=== PATIENT | female | born 1955 | race African-American/Black ===

== ENCOUNTER 2016-10-20 10:34 | Emergency (ER) | payer MEDICARE, MEDICAID ==
[~2016-10-20] VITALS: Ht 172.7 cm; Wt 80.0 kg
[~2016-10-20 10:34] MED LIST: ACET500T3 PO; BACT800T5 PO; ERYTOIN10 RIGHT EYE; IBUP-232 PO; MUPI2%T TOPICAL
[2016-10-20 10:35] VITALS: BP 126/85; PULSE 64; RESP 24; TEMP 97.4; O2SAT 97
--- NOTE | 2016-10-20 10:46 | PD ---
HPI Chief Complaint: Back/ Neck Pain or Injury Time Seen by Provider: 10:42 Travel History International Travel<30 days: No Contact w/Intl Traveler<30days: No Traveled to known affect area: No History of Present Illness HPI 60-year-old Afro-Bur[place] female presents the emergency department with ongoing and worsening central thoracic and upper lumbar back pain and muscle spasm. Patient states she hasn't appointment with her pain clinic on 25 October. She has been doing well up until last couple of weeks. She denies any other specific acute injury. She states the pain is 10 out of 10 today. She's been trying heat and ice and stretching without improvement. Patient has history of recurrent back pain in the past. Patient has not been the pain management and many months. She has history of MRSA. She has no known drug allergies. PFSH Past Medical History Hx Anticoagulant Therapy: Yes (ASA) Arthritis: Yes Asthma: No Autoimmune Disease: No Blood Disorders: No Anxiety: No Depression: No Heart Rhythm Problems: No Cancer: No Cardiovascular Problems: No High Cholesterol: No Chest Pain: No Congestive Heart Failure: No COPD: No Diabetes: No Diminished Hearing: No Endocrine: No Genitourinary: No Hepatitis: No Hiatal Hernia: No Immune Disorder: No Musculoskeletal: Yes (RIGHT KNEE , DDD LOWER BACK) Neurologic: No Psychiatric: No Reproductive: No Respiratory: No Integumentary: Yes (HX OF MRSA) Sickle Cell Disease: No Sleep Apnea: No Thyroid Disease: No Menopausal: Yes Past Surgical History Abdominal Surgery: Yes (APPENDECTOMY) Appendectomy: Yes Cardiac Surgery: No Ear Surgery: No Endocrine Surgery: No Eye Surgery: No Genitourinary Surgery: No Gynecologic Surgery: No Joint Replacement: Yes (BILAT TKR) Thoracic Surgery: No Other Surgery: Yes (appendectomy, knee replament) Social History Alcohol Use: Yes (OCCASSIONAL) Tobacco Use: Yes (4 CIGARETTS PER DAY) Substance Use: No Allergies-Medications (Allergen,Severity, Reaction): Coded Allergies: *MDRO Multi-Drug Resistant Organism (Verified Adverse Reaction, Unknown, ) MRSA Arm and leg wounds 2006 &2008 Reported Meds & Prescriptions Reported Meds & Active Scripts Active Review of Systems Except as stated in HPI: all other systems reviewed are Neg General / Constitutional: No: Fever Eyes: No: Visual changes HENT: No: Headaches Cardiovascular: No: Chest Pain or Discomfort Respiratory: No: Shortness of Breath Gastrointestinal: No: Abdominal Pain Genitourinary: No: Dysuria Musculoskeletal: Positive: Myalgias, Arthralgias, Limited ROM, Pain Skin: No Rash Neurologic: No: Weakness Psychiatric: No: Depression Endocrine: No: Polydipsia Hematologic/Lymphatic: No: Easy Bruising Physical Exam Narrative GENERAL: Patient appears in moderate distress. SKIN: Warm and dry. Normal color. Normal turgor. No rash. HEAD: Atraumatic. Normocephalic. EYES: Pupils equal and round. No scleral icterus. No injection or drainage. ENT: No nasal bleeding or discharge. Mucous membranes pink and moist. Pharynx is clear. Airway is patent. NECK: Trachea midline. No bony step-off or tenderness. Neck is supple without tenderness CARDIOVASCULAR: Regular rate and rhythm. RESPIRATORY: No accessory muscle use. Clear to auscultation. Breath sounds equal bilaterally. GASTROINTESTINAL: Abdomen soft, non-tender, nondistended. Hepatic and splenic margins not palpable. MUSCULOSKELETAL: Extremities without clubbing, cyanosis, or edema. No obvious deformities. Patient has tenderness along the lower thoracic upper lumbar spine with palpable muscle spasm with tenderness reproduced the patient's patient has no lower extremity sciatic signs. NEUROLOGICAL: Awake and alert. No obvious cranial nerve deficits. Motor grossly within normal limits. Five out of 5 muscle strength in the arms and legs. Normal speech. PSYCHIATRIC: Appropriate mood and affect; insight and judgment normal. Data Data Last Documented VS Vital Signs Date Time Temp Pulse Resp B/P Pulse Ox O2 Delivery O2 Flow Rate FiO2 10/20/16 10:35 97.4 64 24 126/85 97 Room Air Orders Acetamin-Hydrocod 325-5 Mg ([place] 5-325 (10/20/16 11:00) Prednisone (Deltasone) (10/20/16 11:00) [facility] Medical Decision Making Medical Screen Exam Complete: Yes Emergency Medical Condition: Yes Differential Diagnosis Recurrent back pain. Muscle spasm. Degenerative disc disease. Narrative Course Radiographic imaging is not felt warranted based on the patient's history and physical. Patient is given 40 mg prednisone by mouth as well as 5/325 mg Lortab by mouth Patient will be continued on prednisone 20 mg twice a day 5 days. Patient is given Flexeril 10 mg 3 times a day #15. Patient was given Lortab 5/325 one tablet every 6 hours when necessary #20. Patient is to use heat, ice, stretching, and follow-up with pain management as scheduled. Patient can return the emergency Department with worsening symptoms if necessary. Referrals: Pain Management Patient Instructions: Acute Low Back Pain (ED), General Instructions, Muscle Spasm (ED), Narcotic given in the ED, Upper Back Exercises (GEN) Additional Instructions: Radiographic imaging is not felt warranted based on the patient's history and physical. Patient is given 40 mg prednisone by mouth as well as 5/325 mg Lortab by mouth Patient will be continued on prednisone 20 mg twice a day 5 days. Patient is given Flexeril 10 mg 3 times a day #15. Patient was given Lortab 5/325 one tablet every 6 hours when necessary #20. Patient is to use heat, ice, stretching, and follow-up with pain management as scheduled. Patient can return the emergency Department with worsening symptoms if necessary. Scripts Prednisone 20 Mg Tab20 Mg PO BID #10 TAB Prov:Edson Terrell MD 10/20/16 Hydrocodone-Acetaminophen (Lortab)5-325 Mg Tab1-2 Tab PO Q6H PRN (PAIN) #20 TAB Prov:Edson Terrell MD 10/20/16 Cyclobenzaprine (Flexeril)10 Mg Tab10 Mg PO TID #15 TAB Prov:Edson Terrell MD 10/20/16 Disposition: 01 DISCHARGE HOME Condition: Stable Andres Zafar Oct 20, 2016 10:46
[2016-10-20] MEDS ORDERED: HYDR-3533 PO (10:56)
[2016-10-20] MEDS ORDERED: PRED20 PO (10:56)
[2016-10-20] MEDS ORDERED: CYCL1TAB29 PO (10:56)
[2016-10-20] MEDS ORDERED: ACETAMINOPHEN/HYDROcodone 325 MG/5 MG TAB PO ONE (11:00)
[2016-10-20] MEDS ORDERED: predniSONE 20 MG TAB PO ONE (11:00)
--- NOTE | 2016-11-06 04:27 | PD ---
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 Data Data Orders Acetamin-Hydrocod 325-5 Mg ([place] 5-325 (10/20/16 11:00) Prednisone (Deltasone) (10/20/16 11:00) [facility] Supervised Visit with MALISSA: Yes Diagnosis Primary Impression: Acute exacerbation of chronic low back pain Referrals: Pain Management Patient Instructions: General Instructions, Narcotic given in the ED, Acute Low Back Pain (ED), Muscle Spasm (ED), Upper Back Exercises (GEN) Departure Forms: Tests/Procedures Additional Instruction: Radiographic imaging is not felt warranted based on the patient's history and physical. Patient is given 40 mg prednisone by mouth as well as 5/325 mg Lortab by mouth Patient will be continued on prednisone 20 mg twice a day 5 days. Patient is given Flexeril 10 mg 3 times a day #15. Patient was given Lortab 5/325 one tablet every 6 hours when necessary #20. Patient is to use heat, ice, stretching, and follow-up with pain management as scheduled. Patient can return the emergency Department with worsening symptoms if necessary. Scripts Prednisone 20 Mg Tab20 Mg PO BID #10 TAB Prov:Edson Terrell MD 10/20/16 Hydrocodone-Acetaminophen (Lortab)5-325 Mg Tab1-2 Tab PO Q6H PRN (PAIN) #20 TAB Prov:Edson Terrell MD 10/20/16 Cyclobenzaprine (Flexeril)10 Mg Tab10 Mg PO TID #15 TAB Prov:Edson Terrell MD 10/20/16 Disposition: 01 DISCHARGE HOME Condition: Stable Edson Terrell MD Nov 06, 2016 04:27
== END 2016-10-20 11:26 | disposition home or self-care (01) ==
LOC: NEPK 10:34
DX: M54.5 Low back pain (principal); G89.29 Other chronic pain; M54.6 Pain in thoracic spine; M62.830 Muscle spasm of back; Z72.0 Tobacco use; Z79.82 Long term (current) use of aspirin; Z87.39 Personal history of other diseases of the musculoskeletal system and connective tissue; Z86.14 Personal history of Methicillin resistant Staphylococcus aureus infection
CPT/HCPCS: 99284; J7512

== ENCOUNTER 2017-02-12 07:05 | Emergency (ER) | payer MEDICARE, OTHER ==
[~2017-02-12] VITALS: Ht 177.8 cm; Wt 80.0 kg
[~2017-02-12 07:05] MED LIST changes: -ACET500T3 PO; -BACT800T5 PO; +CYCL1TAB29 PO; -ERYTOIN10 RIGHT EYE; +HYDR-3533 PO; -IBUP-232 PO; -MUPI2%T TOPICAL; +PRED20 PO
[2017-02-12 07:16] VITALS: BP 138/87; PULSE 81; RESP 15; TEMP 97.8; O2SAT 99
[2017-02-12] MEDS ORDERED: ORPHENADRINE INJ 60 MG/2 ML AMP IM ONE (07:30)
[2017-02-12] MEDS ORDERED: KETOROLAC TROMETHAMINE 60 MG/2 ML (IM) VIAL IM ONE (07:30)
[2017-02-12] MEDS ORDERED: ROBA500T PO (07:33)
[2017-02-12] MEDS ORDERED: PRED20 PO (07:33)
--- NOTE | 2017-02-12 07:33 | PD ---
HPI Chief Complaint: Back/ Neck Pain or Injury Time Seen by Provider: 07:19 Travel History International Travel<30 days: No Contact w/Intl Traveler<30days: No Traveled to known affect area: No History of Present Illness HPI 61 year old female with history of back pain presents to the ED for evaluation of mid back pain persisting over the last two weeks. Pt denies any specific injury, but states she thinks it is from lifting. Pain is a constant 6/10 but worsens to a 10/10 with lifting. Denies chest pain or tightness. No focal deficit or weakness. The pain does not radiate anywhere. She has no other symptoms to report. PFSH Past Medical History Hx Anticoagulant Therapy: Yes (ASA) Arthritis: Yes Asthma: No Autoimmune Disease: No Blood Disorders: No Anxiety: No Depression: No Heart Rhythm Problems: No Cancer: No Cardiovascular Problems: No High Cholesterol: No Chest Pain: No Congestive Heart Failure: No COPD: No Diabetes: No Diminished Hearing: No Endocrine: No Genitourinary: No Hepatitis: No Hiatal Hernia: No Immune Disorder: No Musculoskeletal: Yes (RIGHT KNEE , DDD LOWER BACK) Neurologic: No Psychiatric: No Reproductive: No Respiratory: No Integumentary: Yes (HX OF MRSA) Sickle Cell Disease: No Sleep Apnea: No Thyroid Disease: No ?: Not Menopausal: Yes Past Surgical History Abdominal Surgery: Yes (APPENDECTOMY) Appendectomy: Yes Cardiac Surgery: No Ear Surgery: No Endocrine Surgery: No Eye Surgery: No Genitourinary Surgery: No Gynecologic Surgery: No Joint Replacement: Yes (BILAT TKR) Thoracic Surgery: No Other Surgery: Yes (appendectomy, knee replament) Social History Alcohol Use: Yes (OCCASSIONAL) Tobacco Use: Yes (4 CIGARETTS PER DAY) Substance Use: No Allergies-Medications (Allergen,Severity, Reaction): Coded Allergies: *MDRO Multi-Drug Resistant Organism (Verified Adverse Reaction, Unknown, ) MRSA Arm and leg wounds 2006 &2008 Reported Meds & Prescriptions Reported Meds & Active Scripts Active Robaxin (Methocarbamol) 500 Mg Tab 500 Mg PO QID PRN Prednisone 20 Mg Tab 20 Mg PO BID 5 Days Prednisone 20 Mg Tab 20 Mg PO BID Lortab (Hydrocodone-Acetaminophen) 5-325 Mg Tab 1-2 Tab PO Q6H PRN Flexeril (Cyclobenzaprine HCl) 10 Mg Tab 10 Mg PO TID Review of Systems Except as stated in HPI: all other systems reviewed are Neg Physical Exam Narrative GENERAL: Well nourished female pt ambulatory and in no acute distress SKIN: Warm and dry. HEAD: Normocephalic. EYES: No scleral icterus. No injection or drainage. NECK: Supple, trachea midline. No JVD or lymphadenopathy. CARDIOVASCULAR: Regular rate and rhythm without murmurs, gallops, or rubs. RESPIRATORY: Breath sounds equal bilaterally. No accessory muscle use. GASTROINTESTINAL: Abdomen soft, non-tender, nondistended. MUSCULOSKELETAL: No cyanosis, or edema. 5+ equal strength bilateral extremities. No focal deficits. BACK: No midline tenderness. Tenderness in the thoracic paraspinal musculature. without obvious deformity. No CVA tenderness. Data Data Last Documented VS Vital Signs Date Time Temp Pulse Resp B/P (MAP) Pulse Ox O2 Delivery O2 Flow Rate FiO2 02/12/17 07:46 02/12/17 07:16 97.8 81 15 99 Orders Orders Ketorolac Inj (Toradol Inj) (02/12/17 07:30) Orphenadrine Inj (Norflex Inj) (02/12/17 07:30) Ed Discharge Order (02/12/17 07:33) MDM Medical Decision Making Medical Screen Exam Complete: Yes Emergency Medical Condition: Yes Medical Record Reviewed: Yes Differential Diagnosis muscle spasm vs strain vs discogenic pain vs radiculopathy. Narrative Course 61 year old female presents to the ED for evaluation of thoracic back pain, persisting for 2 weeks, exacerbated by lifting. Physical exam is reassuring. There are no focal deficits; no spinal tenderness. This is likely muscle strain. Pt will be treated for pain and discharged with pain control. She is instructed to return to the ED with acute worsening of symptoms Diagnosis Primary Impression: Acute exacerbation of chronic low back pain Referrals: Primary Care Physician Patient Instructions: Back Pain (ED), General Instructions Med/Other Pt SpecificInfo: Prescription(s) given Scripts Methocarbamol (Robaxin) 500 Mg Tab 500 MG PO QID Y for MUSCLE SPASM, #20 TAB 0 Refills Prov: Mignon Cross 02/12/17 Prednisone (Prednisone) 20 Mg Tab 20 MG PO BID for 5 Days, #10 TAB 0 Refills Prov: Mignon Cross 02/12/17 Disposition: 01 DISCHARGE HOME Condition: Stable Mignon Cross Feb 12, 2017 07:33
== END 2017-02-12 08:27 | disposition home or self-care (01) ==
LOC: NEPK 07:05
DX: M54.5 Low back pain (principal); G89.29 Other chronic pain; M54.6 Pain in thoracic spine; Z72.0 Tobacco use; Z79.82 Long term (current) use of aspirin; Z87.39 Personal history of other diseases of the musculoskeletal system and connective tissue; Z86.14 Personal history of Methicillin resistant Staphylococcus aureus infection
CPT/HCPCS: 96372; 99284; J1885; J2360

== ENCOUNTER 2017-08-05 23:47 | Emergency (ER) | payer MEDICARE, OTHER ==
[~2017-08-05] VITALS: Ht 175.3 cm; Wt 69.0 kg
[~2017-08-05 23:47] MED LIST changes: +CYCL10TA PO; -CYCL1TAB29 PO; +ROBA500T PO
[2017-08-05 23:49] VITALS: BP 139/94; PULSE 85; RESP 24; O2SAT 99
[2017-08-06] MEDS ORDERED: diphenhydrAMINE HCL 25 MG CAP PO ONE (00:45)
[2017-08-06] MEDS ORDERED: IBUPROFEN 600 MG TAB PO ONE (00:45)
--- NOTE | 2017-08-06 01:59 | PD ---
HPI Chief Complaint: Respiratory Symptoms Time Seen by Provider: 00:22 Travel History International Travel<30 days: No Contact w/Intl Traveler<30days: No Traveled to known affect area: No History of Present Illness HPI Patient is a 61 year old female who comes in complaining of nasal congestion and sore throat. She says it started today after adventist. She denies fever, but has had chills. She says she had the flu a month ago, but that has gotten better. She denies cough or difficulty breathing. She tried Mucinex and cough drops without relief. Severity is mild. PFSH Past Medical History Hx Anticoagulant Therapy: Yes (ASA) Arthritis: Yes Asthma: No Autoimmune Disease: No Blood Disorders: No Anxiety: No Depression: No Heart Rhythm Problems: No Cancer: No Cardiovascular Problems: No High Cholesterol: No Chest Pain: No Congestive Heart Failure: No COPD: No Cerebrovascular Accident: Yes Diabetes: No Diminished Hearing: No Endocrine: No Genitourinary: No Hepatitis: No Hiatal Hernia: No Immune Disorder: No Musculoskeletal: Yes (RIGHT KNEE , DDD LOWER BACK) Neurologic: No Psychiatric: No Reproductive: No Respiratory: No Integumentary: Yes (HX OF MRSA) Immunizations Current: Yes Sickle Cell Disease: No Sleep Apnea: No Thyroid Disease: No Menopausal: Yes Past Surgical History Abdominal Surgery: Yes (APPENDECTOMY) Appendectomy: Yes Cardiac Surgery: No Ear Surgery: No Endocrine Surgery: No Eye Surgery: No Genitourinary Surgery: No Gynecologic Surgery: No Joint Replacement: Yes (BILAT TKR) Thoracic Surgery: No Other Surgery: Yes (appendectomy, knee replament) Social History Alcohol Use: No (DENIES) Tobacco Use: Yes (2 CIGARETTS PER DAY) Substance Use: No Allergies-Medications (Allergen,Severity, Reaction): Coded Allergies: *MDRO Multi-Drug Resistant Organism (Verified Adverse Reaction, Unknown, ) MRSA Arm and leg wounds 2006 &2008 Reported Meds & Prescriptions Reported Meds & Active Scripts Active No Active Prescriptions or Reported Medications Review of Systems Except as stated in HPI: all other systems reviewed are Neg General / Constitutional: Positive: Chills, No: Fever HENT: Positive: Congestion, No: Headaches Cardiovascular: No: Chest Pain or Discomfort Respiratory: No: Cough, Shortness of Breath Gastrointestinal: No: Nausea, Vomiting Musculoskeletal: No: Myalgias, Edema Skin: No Rash, No Change in Pigmentation Neurologic: No: Weakness, Dizziness Physical Exam Narrative GENERAL: Awake and alert, in no acute distress. SKIN: Focused skin assessment warm/dry. HEAD: Atraumatic. Normocephalic. EYES: Pupils equal and round. No scleral icterus. ENT: No tonsillar swelling or exudates. Mucous membranes pink and moist. NECK: Trachea midline. No JVD. CARDIOVASCULAR: Regular rate and rhythm. No murmur appreciated. RESPIRATORY: No accessory muscle use. Clear to auscultation. Breath sounds equal bilaterally. MUSCULOSKELETAL: No obvious deformities. No clubbing. No cyanosis. No edema. NEUROLOGICAL: Awake and alert. No obvious cranial nerve deficits. Motor grossly within normal limits. Normal speech. PSYCHIATRIC: Appropriate mood and affect; insight and judgment normal. Data Data Last Documented VS Vital Signs Date Time Temp Pulse Resp B/P (MAP) Pulse Ox O2 Delivery O2 Flow Rate FiO2 08/05/17 23:49 85 24 139/94 (109) 99 Orders Orders Influenzae A/B Antigen (08/06/17 00:39) Group A Rapid Strep Screen (08/06/17 00:39) Ibuprofen (Motrin) (08/06/17 00:45) Diphenhydramine (Benadryl) (08/06/17 00:45) Strep Culture (Group A) (08/06/17 00:35) MDM Medical Decision Making Medical Screen Exam Complete: Yes Emergency Medical Condition: Yes Medical Record Reviewed: Yes Differential Diagnosis URI vs pharyngitis vs influenza Narrative Course Patient is a 61 year old female who comes in complaining of nasal congestion and sore throat. Exam shows no acute abnormalities. Flu swab is negative. Strep screen is negative. Given Benadryl and Ibuprofen and she is feeling better. She is advised to try nasal decongestants. Advised to follow up with a primary doctor. Advised to return to the ED as needed for any worsening symptoms. Diagnosis Primary Impression: URI (upper respiratory infection) Qualified Codes: J06.9 - Acute upper respiratory infection, unspecified Patient Instructions: General Instructions, Upper Respiratory Infection (ED) Additional Instructions: Try [id number] nasal decongestants. You can take ibuprofen as needed for pain. Follow-up with your doctor. Return to the ED as needed for any worsening symptoms. Scripts No Active Prescriptions or Reported Meds Disposition: DISCHARGE HOME Condition: Stable Sonali Farfan MD Aug 06, 2017 01:59
== END 2017-08-06 02:21 | disposition home or self-care (01) ==
LOC: NEPC 23:47
DX: J06.9 Acute upper respiratory infection, unspecified (principal); F17.210 Nicotine dependence, cigarettes, uncomplicated
CPT/HCPCS: 87081; 87804; 87880; 99283